=== PATIENT | female | born 1980 | race Caucasian/White ===

== ENCOUNTER 2016-11-05 10:35 | Emergency (ER) | payer OTHER ==
[~2016-11-05] VITALS: Ht 160 cm; Wt 83.4 kg
[~2016-11-05 10:35] MED LIST: ADVIL200 MG PO; ALYACEN1 EACH PO; ASCORBIC ACID500 M3 PO; BACTRIM,SEPT1 TABLET PO; BENADRYL50 MG PO; CHERATUSSIN AC473 ML PO; CLINDAMYCIN HC300 MG PO; ELAVIL25 MG PO; FLEXERIL10 MG PO; GABAPENTIN100 MG PO; GABAPENTIN400 MG PO; HYDROCODON-ACE1 EACH; HYDROCORTISONE30 G1 TP; IMITREX25 MG PO; KEFLEX500 MG PO; LAMICTAL25 MG PO; LEVAQUIN750 MG PO; LEVOFLOXACIN750 MG PO; MEDROL DOSEPAK4 MG PO; MOTRIN600 MG PO; MOTRIN800 MG PO; NABUMETONE750 MG PO; NAPROSYN500 MG PO; NAPROXEN500 MG PO; NOHOMEMEDS; PEN-VEE K,VEET500 MG PO; PERCOCET 5/31 TABLET PO; PROVENTIL,2.5 MG/0.5 IH; PROVENTIL,200 INHALA IH; PROVENTIL2.5 MG/3 M IH; PYRIDIUM200 MG PO; REGLAN10 MG PO; ROBITUSSIN AC,T10 ML PO; TORADOL10 MG PO; TRAMADOL HCL50 MG PO; ULTRAM50 MG PO; UNABLEOBTAIN; VITAMIN K100 MCG PO
[2016-11-05 11:31] LABS: EOSINOPHIL (%) 3.1 % (0-5); EOSINOPHIL COUNT 0.3 K/uL (0-0.3); HEMATOCRIT 39.1 % (36.0-46.0); IMMATURE GRANULOCYTE (%) 0.3 % (0.0-0.7); INSTRUMENT ABS NEUTROPHIL CT 7.3 K/uL; MCH 29.4 PG (29.0-34.0); MCHC 32.7 G/DL (30.0-36.0); MCV 89.9 FL (83-99); MEAN PLAT.VOLUME 10.3 uM^3 (9.5-12.4); MONOCYTE (%) 6.2 % (3-12); MONOCYTE COUNT 0.6 K/uL (0-0.8); NEUTROPHIL (%) 70.7 % (45-76); NEUTROPHIL COUNT 7.3 K/uL (1.8-6.4); PLATELET COUNT 298 K/uL (156-360); RBC DIS.WIDTH-CV 13.4 % (11.8-14.6); RBC DIS.WIDTH-SD 44.4 % (39-53); RED BLOOD COUNT 4.35 M/uL (3.80-5.20); WHITE BLOOD COUNT 10.3 K/uL (4.1-10.2)
[2016-11-05 11:48] LABS: CHLORIDE 110 mEq/L (99-109); POTASSIUM 4.1 mEq/L (3.7-5.4); SODIUM 141 mEq/L (136-147)
[2016-11-05 11:50] LABS: GLUCOSE 85 mg/dL (70-99)
[2016-11-05 11:51] LABS: ANION GAP 12 MEQ/L (2-14)
[2016-11-05 11:52] LABS: TOTAL BILIRUBIN 0.2 mg/dL (0.0-1.0)
[2016-11-05 11:53] LABS: ADD MIUA? YES; BILIRUBIN NEGATIVE; BLOOD NEGATIVE; COLOR YELLOW ((YELLOW)); GLUCOSE (STRIP) NEGATIVE; KETONES NEGATIVE; LEUKOCYTES MODERATE; NITRITE NEGATIVE; PROTEIN (STRIP) NEGATIVE; UROBILINOGEN 0.2 MG/DL (0.2-1.0)
[2016-11-05 11:53] LABS: ALKALINE PHOSPHATASE 76 IU/L (3-129)
[2016-11-05 11:54] LABS: GFR ESTIMATE (CALCULATED) > 59 mL/min/
[2016-11-05 11:55] LABS: UREA NITROGEN (BUN) 10 mg/dL (9-23)
[2016-11-05 12:02] LABS: QUANTITATIVE HCG < 4.0 MIU/ML
[2016-11-05 12:06] LABS: BACTERIA RARE /HPF; EPITHELIAL CELLS 1+ /HPF; MUCUS NONE SEEN /LPF; RED BLOOD CELLS 0-5 /HPF (0-5); UCUL ADDED? NO
[2016-11-05] MEDS ORDERED: PROVENTIL,2.5 MG/3 M IH ×2 (13:01→13:09)
[2016-11-05] MEDS ORDERED: NAPROXEN500 MG PO (13:01)
[2016-11-05] MEDS ORDERED: TESSALON200 MG PO (13:01)
[2016-11-05 13:23] VITALS: BP 109/74
== END 2016-11-05 13:24 | disposition home or self-care (01) ==
LOC: EME 10:35
PROVIDERS: Physician Assistant
DX: N83.209 Unspecified ovarian cyst, unspecified side (principal); J45.901 Unspecified asthma with (acute) exacerbation; F17.200 Nicotine dependence, unspecified, uncomplicated; K21.9 Gastro-esophageal reflux disease without esophagitis
CPT/HCPCS: 71020; 76856; 80053; 81003; 84702; 85025; 85027; 94640; 99281; 99283; J1885